=== PATIENT | male | born 1955 | race Caucasian/White ===

== ENCOUNTER 2016-07-16 06:33 | Emergency (ER) | payer OTHER ==
[~2016-07-16] VITALS: Ht 170.2 cm; Wt 118.2 kg
[2016-07-16 06:43] VITALS: BP 0/0
[2016-07-16] MEDS ORDERED: BUPR150T3 PO (06:52)
[2016-07-16] MEDS ORDERED: LISI1TAB11 PO (06:52)
== END 2016-07-16 10:41 | disposition expired ==
LOC: EMS 06:35
DX: I46.9 Cardiac arrest, cause unspecified (principal); I10 Essential (primary) hypertension; F17.210 Nicotine dependence, cigarettes, uncomplicated
CPT/HCPCS: 99283; 99285